=== PATIENT | female | born 1955 | race African-American/Black ===

== ENCOUNTER 2022-01-02 10:11 | Outpatient (CLI) | payer OTHER | END 2022-01-02 10:12 | disposition home or self-care (01) | LOC: CSHMAMMO 10:11 | PROVIDERS: ATTEND Family Medicine | DX: Z12.31 Encounter for screening mammogram for malignant neoplasm of breast (principal); Z80.3 Family history of malignant neoplasm of breast | CPT/HCPCS: 77063; 77067 ==

== ENCOUNTER 2022-02-28 13:01 | Outpatient (CLI) | payer OTHER | END 2022-02-28 13:02 | disposition home or self-care (01) | LOC: CSHULT 13:01 | PROVIDERS: ATTEND Family Medicine | DX: R31.9 Hematuria, unspecified (principal) | CPT/HCPCS: 76770 ==